=== PATIENT | female | born 1975 | race Caucasian/White ===

== ENCOUNTER 2021-02-12 20:37 | Emergency (ER) | payer OTHER ==
[2021-02-12] MEDS ORDERED: CYCLOBENZAPRINE5 MG PO (22:38)
[2021-02-12] MEDS ORDERED: IBUPROFEN600 MG PO (22:38)
== END 2021-02-12 23:05 | disposition home or self-care (01) ==
LOC: ER1 20:37
DX: M54.5 Low back pain (principal); M54.6 Pain in thoracic spine; M54.2 Cervicalgia; I10 Essential (primary) hypertension; F17.200 Nicotine dependence, unspecified, uncomplicated
CPT/HCPCS: 70450; 71045; 72125; 72128; 72131; 72170; 96372; 99284